=== PATIENT | female | born 1955 | race Native Hawaiian/Other Pacific Islander ===

== ENCOUNTER 2023-09-15 09:30 | Day surgery (SDC) | payer MEDICARE ==
--- NOTE | 2023-08-25 08:53 | HP ---
DATE OF SURGERY: 08/25/2023 HISTORY OF PRESENT ILLNESS: The patient is a 68-year-old with last colonoscopy 2007. No bloody stools. No change in bowel habits. No new pain. Family history negative for colon cancer. PAST MEDICAL HISTORY: She had some rhinitis, depression, chronic obstructive pulmonary disease in the past. PAST SURGICAL HISTORY: Cholecystectomy. Colonoscopy. Tubal in the past. MEDICATIONS: Trazodone, Synthroid, Symbicort, pravastatin, Ozempic, olmesartan/hydrochlorothiazide, metoprolol, Flonase, aspirin, amlodipine, alprazolam, Advair Diskus. ALLERGIES: NKDA. FAMILY HISTORY: Negative in regards to this problem. SOCIAL HISTORY: No smoking. REVIEW OF SYSTEMS: Twelve systems reviewed. No chest pain or palpitations. Other systems negative or noncontributory as above and per preadmission questionnaire. PHYSICAL EXAMINATION: Height 5'3". BMI 28.7. GENERAL: No acute distress. HEENT: Sclerae nonicteric. EOMI. Oral mucous membranes moist. NECK: No JVD. CHEST: Equal excursion, nonlabored breathing. CVS: Regular rate and rhythm. ABDOMEN: Soft, nontender. EXTREMITIES: No significant edema. NEURO: Alert, oriented, moving extremities symmetrically. RECTAL: Deferred timed to endoscopy exam. PSYCH: Appropriate mood and affect. SKIN: Dry. IMPRESSION: She is in need of follow up screening colonoscopy. I feel the patient is a candidate. She was shown the risk sheet, explained the procedure in detail including but not limited to risk of bleeding or infection, risk of bowel injury possibly requiring open procedure, risk of incomplete exam possibly requiring barium enema, other studies, procedures or referrals. Risk of sedation or bowel prep but not limited to. Will proceed with outpatient colonoscopy under MAC anesthesia. Otherwise continue medication for thyroid disease, hypertension, asthma, depression and borderline diabetes. Will proceed with outpatient colonoscopy under MAC anesthesia.
--- NOTE | 2023-09-15 08:47 | HP ---
DATE OF SURGERY: 09/15/2023 HISTORY OF PRESENT ILLNESS: The patient is a 68-year-old last colonoscopy in 2007. No bloody stools. No change in bowel movements. No new pain. Family history negative for colon cancer. The patient is in need of follow up screening colonoscopy. PAST MEDICAL HISTORY: Rhinitis, depression, chronic obstructive pulmonary disease, hypothyroidism, hyperlipidemia and some hypertension. PAST SURGICAL HISTORY: Cholecystectomy. Colonoscopy (2007). Tubal. MEDICATIONS: Trazodone, Synthroid, Symbicort, pravastatin, Ozempic, olmesartan/hydrochlorothiazide, metoprolol, Flonase, aspiring, amlodipine, alprazolam, Advair Diskus. ALLERGIES: NKDA. FAMILY HISTORY: Negative for colon cancer. SOCIAL HISTORY: No smoking. REVIEW OF SYSTEMS: Twelve systems reviewed. No chest pain or palpitations. Other systems negative or noncontributory as above and per preadmission questionnaire. PHYSICAL EXAMINATION: Height 5'3". BMI 28.7. GENERAL: No acute distress. HEENT: Sclerae nonicteric. EOMI. Oral mucous membranes moist. NECK: No JVD. CHEST: Equal excursion, nonlabored breathing. CVS: Regular rate and rhythm. ABDOMEN: Soft, nontender. EXTREMITIES: No edema or cyanosis. NEURO: Alert, oriented, moving extremities symmetrically. RECTAL: Deferred timed to endoscopy exam. PSYCH: Appropriate mood and affect. SKIN: Dry. IMPRESSION: The patient is in need of follow up screening colonoscopy. I feel the patient is a candidate. Risks and benefits explained in detail including but not limited to risk of bleeding or infection, risk of bowel injury or perforation possibly requiring further procedure, risk of missed or nondiagnosis or incomplete exam possibly requiring barium enema, other studies or procedures, general risk of anesthesia or sedation, risk of bowel prep but not limited to, consent obtained. Will proceed with outpatient follow up screening colonoscopy under anesthesia. Otherwise continue medications for hypothyroidism, hypertension, hyperlipidemia, asthma, depression and diabetes.
[2023-09-15 09:58] VITALS: RESP 16
[2023-09-15] MEDS ORDERED: Lactated Ringers 1,000 ML IV SCH (10:00)
[2023-09-15] MEDS ORDERED: Lactated Ringers 1,000 ML IV ONE (10:08)
[2023-09-15] MEDS ORDERED: DIPRIVAN 200 MG/20 ML IV ONE ×2 (11:40→11:52)
[2023-09-15] MEDS ORDERED: Xylocaine-Mpf 2% 5 Ml Vial ONE (11:40)
[2023-09-15] MEDS ORDERED: Mylicon DROPS ONE (11:44)
[2023-09-15] MEDS ORDERED: SUBLIMAZE 100 MCG/2 ML ONE (11:50)
[2023-09-15 12:34] VITALS: PULSE 100; TEMP 98.3
[2023-09-15 12:52] VITALS: BP 110/68; O2SAT 99
--- NOTE | 2023-09-16 08:56 | OP ---
SURGERY DATE/TIME: 09/15/2023 1142 PREOPERATIVE DIAGNOSIS: Need for screening colonoscopy. POSTOPERATIVE DIAGNOSES: 1) ASA Class III. 2) Fair bowel prep. 3) Very tortuous colon. 4) Small early polyp versus hyperplastic lesion, raised lesion transverse colon and rectum. PROCEDURES: 1) Colonoscopy to cecum. 2) Hot biopsy removal of small early polyp versus hyperplastic lesion, raised lesion transverse colon and rectum. SURGEON: Dr. Herbert Olson. ANESTHESIA: MAC. ESTIMATED BLOOD LOSS: Minimal. INDICATIONS: As noted above. Risks and benefits explained in detail but not limited to and consent obtained. DESCRIPTION OF PROCEDURE AND FINDINGS: The patient is taken to the endoscopy room. MAC anesthesia induced. After official time out and no disagreement with planned procedure, digital rectal exam did not reveal any rectal masses. Video colonoscope inserted and passed up through the slightly tortuous sigmoid, descending, transverse and ascending colon around to the cecum. Very tortuous colon. It took quite some time position changes and two different staff members compressing the abdomen. With external pressure the scope was finally able to reach the cecum. Appendiceal orifice as well as the valve photo documented. Prep overall was fair with a little liquidy semisolid stool particularly in the right colon limiting the exam for very small lesions and this is suctioned irrigated out as clear as possible. The scope is carefully withdrawn over the next nine minutes. No signs of any large polyps, masses or obstructing lesions. There was a small 2 mm early polyp versus hyperplastic lesion versus hyperplasia removed with hot biopsy forceps in the transverse colon and another one less impressive, smaller 1.5 mm in the rectum was removed. The scope is withdrawn. The patient tolerated the procedure well. Findings discussed with her out in the waiting area.
== END 2023-09-15 13:00 | disposition home or self-care (01) ==
LOC: SDC 09:30
PROVIDERS: ATTEND Surgery
DX: Z12.11 Encounter for screening for malignant neoplasm of colon (principal); D12.7 Benign neoplasm of rectosigmoid junction; D12.3 Benign neoplasm of transverse colon; Z79.899 Other long term (current) drug therapy
CPT/HCPCS: 82947; 93005; J2704; J3010; A9270-GY

== ENCOUNTER 2023-11-18 06:05 | Day surgery (SDC) | payer MEDICARE ==
[2023-11-18] MEDS ORDERED: Lactated Ringers 1,000 ML IV SCH (06:30)
[2023-11-18 07:09] LABS: ALBUMIN 4.2 g/dL (3.5-5.0); ANION GAP 13.7 MEQ/L (5-15); BILIRUBIN,TOTAL 0.7 mg/dL (0.2-1.3); Calcium 9.8 mg/dL (8.4-10.2); Creatinine 1 1.18 mg/dL (0.52-1.04); EST GLOMERULAR FILTRATION RATE 50.6 ML/MIN; Potassium 4.6 mmol/L (3.5-5.1); Total Protein 7.4 g/dL (6.3-8.2)
[2023-11-18] MEDS ORDERED: DIPRIVAN 200 MG/20 ML IV ONE (07:51)
[2023-11-18] MEDS ORDERED: Versed 2 MG/2 ML Injection ONE (07:52)
[2023-11-18] MEDS ORDERED: SUBLIMAZE 100 MCG/2 ML ONE ×2 (07:52→08:08)
[2023-11-18] MEDS ORDERED: Xylocaine 1% Vial 30 ML PF IJ ONE (07:55)
[2023-11-18] MEDS ORDERED: TORAdol 30 mg Injection ONE (08:55)
--- NOTE | 2023-11-18 09:08 | OP ---
OB OP NOTE - OPERATIVE NOTE Surgery Date: 11/18/23 PREOPERATIVE DIAGNOSIS: Postmenopausal bleeding, endometrial polyp POST OPERATIVE DIAGNOSIS: Postmenopausal bleeding, endometrial polyp Procedure: Hysteroscopic polypectomy with D&C, paracervical block Surgeon: Dr. Jaida Aviles ANESTHESIA: general with LMA ESTIMATED BLOOD LOSS: 10ml CONDITION: Good COMPLICATIONS: none SPECIMEN: endometrial polyp and curettings HISTORY - HISTORY HISTORY: HISTORY: FINDINGS - FINDINGS FINDINGS: FINDINGS: The endometrial cavity had a single polyp which was resected in its entirety with the Myosure reach device. Additional sampling of atrophic appearing endometrium was collected and the cavity thereafter appeared normal. Cervical canal appeared normal. Both tubal ostia seen. Crystalloid fluid deficit 25ml. DESCRIPTION OF PROCEDURE - DESCRIPTION OF PROCEDURE DESCRIPTION OF PROCEDURE: DESCRIPTION OF PROCEDURE: The pt was taken to the OR and placed under general anesthesia. She was then placed in a low lithotomy position and prepped and draped in a sterile fashion. Timeout was performed. In and out cath was done of bladder. A sterile speculum was placed into the patients vagina. Anterior lip of cervix was grasped with a single tooth tenaculum and paracervical block achieved with 10ml of 1% lidocaine plain injected at 4 sites around the cervix. The cervix was dilated to allow passage of the operative hysteroscope with findings as noted above. The Myosure reach device was opened and used to resect the polyp to its base, with additional curettage collected for sampling. The cavity thereafter appeared normal as did the cervical canal, so the hysteroscope was removed with deficit as above. The tenaculum was removed and sites hemostatic. The speculum was removed. The pt tolerated procedure well. Sponge, lap, and needle counts were correct.
[2023-11-18 09:27] VITALS: PULSE 83; TEMP 98.2
[2023-11-18 09:58] VITALS: BP 114/55; RESP 18; O2SAT 96
== END 2023-11-18 10:04 | disposition home or self-care (01) ==
LOC: SDC 06:05
PROVIDERS: ATTEND Obstetrics & Gynecology
DX: N95.0 Postmenopausal bleeding (principal); N84.0 Polyp of corpus uteri
CPT/HCPCS: 36415; 80053; 93005; J1885; J2001; J2250; J2704; J3010

== ENCOUNTER 2024-01-29 21:26 | Emergency (ER) | payer MEDICARE ==
--- NOTE | 2024-01-29 21:28 | ERPHSYRPT ---
- History of Present Illness Time Seen by Provider: 01/29/24 21:28 Historian: patient, family Exam Limitations: no limitations Physician History: This is a 68-year-old white female patient of Dr. Cuevas who approximately 2 weeks ago underwent a knee replacement surgery and has been less active than typical. In addition she was placed on [place] narcotics for pain relief. Patient has had constipation. She did use to suppositories today and 1 fleets enema and only had a response of 2 small bowel movements. Patient has no abdominal pain symptoms but does have tenderness in the perianal area. Patient has a history of hypertension, hyperlipidemia, hypothyroidism, COPD/asthma and depression. Timing/Duration: week(s) (Worsening gradually over the last 1 to 2 weeks), worse (Today) Activities at Onset: none Severity of Pain-Max: none Severity of Pain-Current: none Modifying Factors: Improves With: other (Obstipation) Associated Symptoms: other (Constipation) Previous symptoms: no prior history, no recent treatment Allergies/Adverse Reactions: No Known Drug Allergies Allergy (Verified 01/29/24 21:31) Home Medications: Amlodipine Besylate 10 mg PO DAILY 08/12/23 [History] Fluticasone/Salmeterol [Advair 100-50 Diskus] 2 puff IH BID 08/12/23 [History] Levothyroxine Sodium [Synthroid] 112 mcg PO DAILY 08/12/23 [History] Metoprolol Succinate 50 mg [Toprol Xl 50 MG] 50 mg PO BID 08/12/23 [History] Pravastatin Sodium 20 mg PO DAILY 08/12/23 [History] Montelukast Sodium 10 mg [Singulair 10 MG] 10 mg PO DAILY 11/17/23 [History] Olmesartan Medoxomil 20 mg [Benicar 20 MG] 20 mg PO DAILY 11/18/23 [History] Cyanocobalamin (Vitamin B-12) [Vitamin B-12] 1,000 mcg SL DAILY 01/29/24 [History] Travel Risk - Emerging Infectious Disease Are you exhibiting symptoms associated with any current EIDs: No - Review of Systems Constitutional: No Symptoms Eyes: No Symptoms Ears, Nose, & Throat: No Symptoms Respiratory: No Symptoms Cardiac: No Symptoms Abdominal/Gastrointestinal: Constipation Genitourinary Symptoms: No Symptoms Musculoskeletal: No Symptoms Skin: No Symptoms Neurological: No Symptoms Psychological: No Symptoms Endocrine: No Symptoms Hematologic/Lymphatic: No Symptoms Immunological/Allergic: No Symptoms All Other Systems: Reviewed and Negative - Past Medical History Pertinent Past Medical History: Yes Neurological History: Migraines ENT History: No Pertinent History Cardiac History: High Cholesterol, Hypertension Respiratory History: Asthma, COPD Endocrine Medical History: Diabetes Type II Musculoskeletal History: Osteoarthritis GI Medical History: No Pertinent History History: No Pertinent History Psycho-Social History: Depression Female Reproductive Disorders: No Pertinent History Other Medical History: NO PREVIOUS SURGERIES, THYROID NODULES, - Past Surgical History Past Surgical History: Yes Neuro Surgical History: No Pertinent History Cardiac: No Pertinent History Respiratory: No Pertinent History Gastrointestinal: Cholecystectomy Genitourinary: No Pertinent History Musculoskeletal: No Pertinent History Female Surgical History: Tubal Ligation Other Surgical History: cyst removed from left wrist - Social History Smoking Status: Never smoker Exposure to second hand smoke: No Drug Use: none - Nursing Vital Signs Nursing Vital Signs: Initial Vital Signs Pulse Rate 104 H 01/29/24 21:31 Respiratory Rate 18 01/29/24 21:31 Blood Pressure 136/73 01/29/24 21:31 O2 Sat by Pulse Oximetry 97 01/29/24 21:31 Pain Scale Pain Intensity 2 - Physical Exam General Appearance: no apparent distress, alert, anxiety Eye Exam: PERRL/EOMI, eyes nml inspection Ears, Nose, Throat Exam: normal ENT inspection, moist mucous membranes Neck Exam: normal inspection, non-tender, supple, full range of motion Respiratory Exam: normal breath sounds, lungs clear, airway intact, No chest tenderness, No respiratory distress Cardiovascular Exam: regular rate/rhythm, normal heart sounds, normal peripheral pulses Gastrointestinal/Abdomen Exam: soft, normal bowel sounds, No tenderness Pelvic Exam: not done Rectal Exam: not done Back Exam: normal inspection, normal range of motion, No CVA tenderness, No vert ebral tenderness Extremity Exam: normal inspection, normal range of motion, pelvis stable Neurologic Exam: alert, oriented x 3, cooperative, hydroponics worker II-XII nml as tested, normal mood/affect, nml cerebellar function, nml station & gait, sensation nml Skin Exam: normal color, warm, dry Lymphatic Exam: No adenopathy SpO2 Interpretation: normal O2 Delivery: Room Air - Course Nursing assessment & vital signs reviewed: Yes Ordered Tests: Active Orders 24 hr Category Date Time Status Enema STAT Care 01/29/24 22:44 Active KUB Stat Exams 01/29/24 22:11 Taken Medication Summary Discontinued Medications Generic Name Dose Route Start Last Admin Trade Name [place] PRN Reason Stop Dose Admin Lidocaine HCl 200 mg 01/29/24 22:49 01/29/24 23:17 Lidocaine Hcl 20 Mg/Ml Jelly Uro-Jet TOP 01/29/24 22:50 200 mg STAT ONE Administration Lidocaine HCl Confirm 01/29/24 23:11 Lidocaine Hcl 20 Mg/Ml Jelly Uro-Jet Administered 01/29/24 23:12 Dose 200 mg .ROUTE .STK-MED ONE Magnesium Hydroxide 30 ml 01/29/24 23:51 Magnesium Hydroxide 30 Ml Udcup PO 01/29/24 23:52 STAT ONE - Progress Progress: improved, re-examined Progress Note: 01/29/24 22:25 My medical decision making and the assignment of this medical issue as low complexity is based on review of the patient's past medical history, review the patient's medication list, review the patient's drug allergy list, history present illness and physical findings on examination. The workup in this patient includes KUB to evaluate for the presence or absence of colorectal stool. I interpreted the KUB. There is no evidence of small bowel obstruction. There is no air-fluid levels. There is however moderate amount of stool in the transverse and descending colon as well as in the rectum but not necessarily rectal impaction. Treatment plan will be soapsuds enema and take-home fleets enema with instructions to use MiraLAX orally. She is to avoid narcotic use and increase her activity. 01/30/24 00:07 Patient had a moderate response to the soapsuds enema. She clinically, states that she is feeling better. Counseled pt/family regarding: diagnosis, need for follow-up, rad results Medical Desision Making - Independent Historian Additional History obtained from: Spouse - Diagnostic Testing Diagnostic test were ordered, analyzed, and reviewed by me: Yes Radiological Interpretation: Interpreted by me, Teleradiologist Report - Risk of complications Low Risk: Low risk of morbidity from additional dx testing or treatment - Departure Departure Disposition: Home Clinical Impression: Constipation Condition: Stable Critical Care Time: No Referrals: TAE CUEVAS DO [Primary Care Provider] - Follow up/PCP as directed Additional Instructions: Drink plenty of fluids. Try to stop your narcotic use and use Tylenol and ibuprofen to control your pain. As best you can, follow your postoperative instructions for increasing your activity level. Use oral milk of magnesia and MiraLAX [id number] as instructed on the package each day for the next 3 days. Obtain a fleets enema and use that later today in the afternoon as instructed on the package. Continue using your stool softener. Follow-up with your primary care provider by phone today to make arrangements for follow-up appointment and for further instructions for bowel hygiene.
[2024-01-29 21:44] VITALS: TEMP 98.7
[2024-01-29 22:46] VITALS: RESP 19
[2024-01-29] MEDS ORDERED: XYLOCAINE 2% Uro-Jet ONE (23:11)
[2024-01-29] MEDS: XYLOCAINE 2% Uro-Jet TOP ONE (23:17)
[2024-01-30] MEDS ORDERED: MILK OF MAGNESIA 30 ML ONE (00:07)
[2024-01-30 00:08] VITALS: BP 128/87; PULSE 102; O2SAT 98
[2024-01-30] MEDS: MILK OF MAGNESIA 30 ML PO ONE (00:08)
--- NOTE | 2024-01-30 07:56 | XRAY ---
Indication: Constipation. Comparison: None KUB nonacute and nonobstructed with mild diffuse scattered colonic fecal debris greatest in right hemicolon. Previous cholecystectomy. Solid organs and osseous structures unremarkable.
== END 2024-01-30 00:40 | disposition home or self-care (01) ==
LOC: ED 21:26
DX: K59.00 Constipation, unspecified (principal); R10.2 Pelvic and perineal pain; I10 Essential (primary) hypertension; E78.5 Hyperlipidemia, unspecified; E11.9 Type 2 diabetes mellitus without complications; Z79.899 Other long term (current) drug therapy
CPT/HCPCS: 74018; 99283; A9270-GY